=== PATIENT | female | born 1995 | race Caucasian/White ===

== ENCOUNTER 2020-10-04 18:48 | Emergency (ER) | payer OTHER ==
[2020-10-04 21:09] LABS: BASOPHIL 0.2 % (0-2); EOSINOPHIL 0.5 % (0-5); HCT 35.4 % (37.0-47.0); LYMPHOCYTE 25.2 % (15-48); MCH 28.6 pg (25.0-31.0); MCHC 33.9 g/dL (32.0-36.0); MCV 84.3 fL (78.0-100.0); MONOCYTE 7.4 % (0-12); MPV 10.1 fL (6.0-9.5); NEUTROPHIL 66.1 % (41-80); NRBC 0; PLT 269 K/uL (150-400); RDW 12.7 % (11.5-14.0); WBC 12.1 K/uL (4.0-10.5)
[2020-10-04 21:26] LABS: BILIRUBIN - TOTAL 0.3 mg/dL (0.2-1.0); BUN/CREAT RATIO (CALC) 20.8 RATIO; CREATININE 0.77 mg/dL (0.51-0.95); GLOBULIN (CALCULATION) 2.7 g/dL; POTASSIUM 3.8 mmol/L (3.5-5.1); TOTAL PROTEIN 6.7 g/dL (6.4-8.2)
== END 2020-10-04 21:58 | disposition home or self-care (01) ==
LOC: FER 18:48
PROVIDERS: Physician Assistant
DX: R21 Rash and other nonspecific skin eruption (principal); F17.290 Nicotine dependence, other tobacco product, uncomplicated
CPT/HCPCS: 36415; 80053; 85025; 99283